=== PATIENT | female | born 1995 | race Caucasian/White ===

== ENCOUNTER 2017-02-23 20:50 | Emergency (ER) | payer BC ==
[~2017-02-23] VITALS: Ht 157.5 cm; Wt 54.4 kg
[2017-02-23 21:43] VITALS: BP 147/85
[2017-02-23] MEDS ORDERED: ONDANSETRON ODT 4 MG TAB PO ONE (23:00)
[2017-02-23] MEDS ORDERED: traMADol HCL 50 MG TAB PO ONE (23:00)
== END 2017-02-24 00:15 | disposition home or self-care (01) ==
LOC: ER 20:50
DX: S16.1XXA Strain of muscle, fascia and tendon at neck level, initial encounter (principal); S09.90XA Unspecified injury of head, initial encounter; W19.XXXA Unspecified fall, initial encounter; Y93.79 Activity, other specified sports and athletics; Y99.8 Other external cause status; Y92.89 Other specified places as the place of occurrence of the external cause
CPT/HCPCS: 70450; 72125; 99284; L0120; Q0162